=== PATIENT | female | born 1970 | race Caucasian/White ===

== ENCOUNTER 2019-10-30 03:41 | Emergency (ER) | payer MEDICAID ==
[~2019-10-30] VITALS: Ht 170.2 cm; Wt 68.0 kg
[2019-10-30 03:49] VITALS: Ht 170.2 cm; Wt 68.0 kg
[2019-10-30 05:25] VITALS: BP 146/94
== END 2019-10-30 05:25 | disposition home or self-care (01) ==
LOC: ED 03:41
DX: S61.012A Laceration without foreign body of left thumb without damage to nail, initial encounter (principal); Z88.0 Allergy status to penicillin; Z91.041 Radiographic dye allergy status; X58.XXXA Exposure to other specified factors, initial encounter; Y93.89 Activity, other specified; Y92.89 Other specified places as the place of occurrence of the external cause; Y99.8 Other external cause status